=== PATIENT | female | born 1970 | race Native Hawaiian/Other Pacific Islander ===

== ENCOUNTER 2019-04-06 16:52 | Emergency (ER) | payer MEDICAID, OTHER ==
[2019-04-06 16:56] VITALS: BP 144/75
--- NOTE | 2019-04-06 17:06 | Event Note ---
ED Screening Note Date of service: 04/06/19 Time: 17:05 ED Screening Note: sent by here PCP for blood transfusion hgb on paperwork = 8 This initial assessment/diagnostic orders/clinical plan/treatment(s) is/are subject to change based on patients health status, clinical progression and re-assessment by fellow clinical providers in the ED. Further treatment and workup at subsequent clinical providers discretion. Patient/guardian urged not to elope from the ED as their condition may be serious if not clinically assessed and managed. Initial orders include: labs
[2019-04-06 17:42] LABS: Basophils # (Auto) 0.1 K/mm3 (0.0-0.1); Basophils % (Auto) 0.9 % (0.0-1.8); Eosinophils # (Auto) 0.1 K/mm3 (0.0-0.4); Eosinophils % (Auto) 1.1 % (0.0-4.3); Lymphocytes # (Auto) 2.2 K/mm3 (1.2-5.4); Lymphocytes % (Auto) 28.7 % (13.4-35.0); Mean Corpuscular HGB Conc 31 % (30-34); Monocytes # (Auto) 0.4 K/mm3 (0.0-0.8); Monocytes % (Auto) 5.3 % (0.0-7.3); Platelet Count 478 K/mm3 (140-440); Red Blood Count 4.41 M/mm3 (3.65-5.03)
[2019-04-06 17:43] LABS: Mean Corpuscular Volume 59 fl (79-97); Red Cell Distribution Width 20.3 % (13.2-15.2)
[2019-04-06 17:56] LABS: Albumin 3.9 g/dL (3.9-5); BUN/Creatinine Ratio 24; Blood Urea Nitrogen 17 mg/dL (7-17); Calcium 9.3 mg/dL (8.4-10.2); Hemolysis Index 0
[2019-04-06 18:43] LABS: Alanine Aminotransferase 12 units/L (7-56)
== END 2019-04-06 20:00 | disposition left against medical advice (07) ==
LOC: ED 16:52
DX: Z53.21 Procedure and treatment not carried out due to patient leaving prior to being seen by health care provider (principal)
CPT/HCPCS: 36415; 80053; 82962; 85025; 86850; 86900; 86901